=== PATIENT | female | born 1985 | race Caucasian/White ===

== ENCOUNTER 2017-07-12 12:23 | Emergency (ER) | payer OTHER ==
[~2017-07-12] VITALS: Ht 167.6 cm; Wt 68.0 kg
[2017-07-12] MEDS ORDERED: AMOX1TAB5 PO (13:14)
== END 2017-07-12 13:25 | disposition home or self-care (01) ==
LOC: ER 12:23
DX: S61.552A Open bite of left wrist, initial encounter (principal); W55.01XA Bitten by cat, initial encounter; Y93.89 Activity, other specified; Y92.89 Other specified places as the place of occurrence of the external cause; Y99.8 Other external cause status